=== PATIENT | female | born 1990 | race Caucasian/White ===

== ENCOUNTER 2022-10-20 15:51 | Outpatient (OUT) | payer OTHER, SELFPAY ==
--- NOTE | 2022-10-20 14:39 | US_ITS ---
[address] [address] Patient Name: PHIL MUNOZ MRN: [id number] date: 1990 Sex: F Assigned Patient Location: US Current Patient Location: Accession/Order Number: [id number] Exam Date: 10/20/2022 14:40 Report Date: 10/20/2022 16:16 At the request of: GASTON PAT Procedure: US OB growth EXAMINATION: US OB growth HISTORY: LGA COMPARISON: Ultrasound transvaginal 05/19/2022 FINDINGS: Heart Rate: 134.0 bpm Number: 1.0 Position: CEPHALIC Amniotic Fluid Volume: 16.2 cm Maximum Vertical Pocket: 5.6 cm BIOMETRY: BPD: 8.0 cm cm; 32 weeks 0 days; >97% HC: 29.3 cmcm; 32 weeks 2 days; >97% AC: 28.1 cm cm; 32 weeks 1 days; >97% FL: 6.4 cm cm; 32 weeks 6 days; >97% EFW: 1956.2 grams; >97% FL/AC: 22.6 FL/BPD: 79.6 HC/AC: 1.0 GESTATIONAL AGE: Age by EDC: 28 weeks 5 days GRANT by EDC: 01/07/2023 Age by US: 32 weeks 2 days GRANT by US: 12/13/2022 IMPRESSION: 1. Single live intrauterine . 2. Estimated weight is greater than 97th percentile. Electronically authenticated by: JOSUÉ FINLEY Date: 10/20/2022 16:16
== END 2022-10-20 15:52 ==
LOC: US 15:51
PROVIDERS: PCP Family Medicine; Visit Provider Obstetrics & Gynecology
DX: O36.63X0 Maternal care for excessive fetal growth, third trimester, not applicable or unspecified (principal); Z3A.00 Weeks of gestation of pregnancy not specified
CPT/HCPCS: 76816

== ENCOUNTER 2022-11-16 15:58 | Outpatient (OUT) | payer OTHER, SELFPAY ==
--- NOTE | 2022-11-16 16:10 | US_ITS ---
[address] [address] Patient Name: PHIL MUNOZ MRN: [id number] date: 1990 Sex: F Assigned Patient Location: [facility] Current Patient Location: Accession/Order Number: [id number] Exam Date: 11/16/2022 16:11 Report Date: 11/17/2022 04:13 At the request of: GASTON PAT Procedure: US OB BPP w non-stress EXAMINATION: US OB BPP w non-stress HISTORY: LARGE GESTATION AGE COMPARISON: Ultrasound OB growth 10/20/2022 TECHNIQUE: Ultrasound biophysical profile was performed in the radiology department. BREATHING MOVEMENTS: 2.0 GROSS BODY MOVEMENTS: 2.0 TONE: 2.0 QUALITATIVE AMNIOTIC FLUID VOLUME: 2.0 PRESENTATION: CEPHALIC HEART RATE: 148.4 bpm bpm. AMNIOTIC FLUID VOLUME: 14.1 cm GESTATIONAL AGE: 32 weeks 4 days CONCLUSION: Total biophysical profile score 8.0. Electronically authenticated by: JOSUÉ FINLEY Date: 11/17/2022 04:13
[2022-11-16 16:38] VITALS: BP 127/67; PULSE 85
--- NOTE | 2022-11-16 16:57 | US_ITS ---
[address] [address] Patient Name: PHIL MUNOZ MRN: [id number] date: 1990 Sex: F Assigned Patient Location: [facility] Current Patient Location: US Accession/Order Number: [id number] Exam Date: 11/16/2022 16:58 Report Date: 11/17/2022 04:16 At the request of: GASTON PAT Procedure: US OB growth EXAMINATION: US OB growth HISTORY: LGA ; large for gestational age COMPARISON: Ultrasound OB growth 10/20/2022 FINDINGS: Heart Rate: 145.2 bpm Number: 1.0 Position: CEPHALIC Amniotic Fluid Volume: 16.4 cm Maximum Vertical Pocket: 6.4 cm BIOMETRY: BPD: 8.9 cm cm; 36 weeks 0 days; >97% HC: 32.0 cmcm; 36 weeks 0 days; 92% AC: 30.8 cm cm; 34 weeks 6 days; 96% FL: 6.6 cm cm; 33 weeks 6 days; 71% EFW: 2509.7 grams; 95% FL/AC: 21.3 FL/BPD: 73.7 HC/AC: 1.0 GESTATIONAL AGE: Age by EDC: 32 weeks 4 days GRANT by EDC: 01/07/2023 Age by US: 35 weeks 1 day GRANT by US: 12/20/2022 IMPRESSION: 1. Single live intrauterine . 2. Estimated weight is at 95th percentile. Electronically authenticated by: JOSUÉ FINLEY Date: 11/17/2022 04:16
== END 2022-11-16 17:17 ==
LOC: US 15:58 → FBC 15:59
PROVIDERS: PCP Family Medicine; Visit Provider Obstetrics & Gynecology
DX: O36.63X0 Maternal care for excessive fetal growth, third trimester, not applicable or unspecified (principal); Z3A.00 Weeks of gestation of pregnancy not specified
CPT/HCPCS: 59025; 76816; 76818

== ENCOUNTER 2022-11-19 15:20 | Outpatient (OUT) | payer OTHER, SELFPAY | END 2022-11-19 15:44 | disposition home or self-care (01) | LOC: FBC 11-26 14:11 → FBCO 11-26 14:11 | PROVIDERS: PCP Family Medicine; Visit Provider Obstetrics & Gynecology | DX: O26.849 Uterine size-date discrepancy, unspecified trimester (principal) | CPT/HCPCS: 59025 ==

== ENCOUNTER 2022-11-23 15:16 | Outpatient (OUT) | payer OTHER, SELFPAY ==
--- NOTE | 2022-11-23 15:00 | US_ITS ---
[address] [address] Patient Name: PHIL MUNOZ MRN: [id number] date: 1990 Sex: F Assigned Patient Location: Current Patient Location: [facility] Accession/Order Number: [id number] Exam Date: 11/23/2022 15:00 Report Date: 11/23/2022 16:23 At the request of: GASTON PAT Procedure: US OB BPP w non-stress EXAMINATION: US OB BPP w non-stress HISTORY: EXCESSIVE GROWTH AFFECTING O36.63X0 COMPARISON: Ultrasound biophysical 11/16/2022 TECHNIQUE: Ultrasound biophysical profile was performed in the radiology department. BREATHING MOVEMENTS: 2.0 GROSS BODY MOVEMENTS: 2.0 TONE: 2.0 QUALITATIVE AMNIOTIC FLUID VOLUME: 2.0 PRESENTATION: BREECH HEART RATE: 137.8 bpm bpm. AMNIOTIC FLUID VOLUME: 15.3 cm GESTATIONAL AGE: 38 weeks 0 days CONCLUSION: Total biophysical profile score 8.0. Electronically authenticated by: JOSUÉ FINLEY Date: 11/23/2022 16:23
[2022-11-23 15:26] VITALS: BP 117/64; PULSE 82
== END 2022-11-23 16:33 | disposition home or self-care (01) ==
LOC: US 15:16 → FBC 15:17
PROVIDERS: PCP Family Medicine; Visit Provider Obstetrics & Gynecology
DX: O36.63X0 Maternal care for excessive fetal growth, third trimester, not applicable or unspecified (principal); Z3A.38 38 weeks gestation of pregnancy
CPT/HCPCS: 59025; 76818

== ENCOUNTER 2022-11-26 14:15 | Outpatient (OUT) | payer OTHER, SELFPAY ==
[2022-11-26 15:31] VITALS: BP 131/71; PULSE 88
== END 2022-11-26 15:50 ==
LOC: FBCO 15:21 → FBC 15:23
PROVIDERS: PCP Family Medicine; Visit Provider Obstetrics & Gynecology
DX: O26.849 Uterine size-date discrepancy, unspecified trimester (principal)
CPT/HCPCS: 59025

== ENCOUNTER 2022-11-30 15:04 | Outpatient (OUT) | payer OTHER, SELFPAY ==
--- NOTE | 2022-11-30 15:05 | US_ITS ---
[address] [address] Patient Name: PHIL MUNOZ MRN: [id number] date: 1990 Sex: F Assigned Patient Location: [facility] Current Patient Location: Accession/Order Number: [id number] Exam Date: 11/30/2022 15:10 Report Date: 11/30/2022 20:00 At the request of: GASTON PAT Procedure: US OB BPP w non-stress EXAMINATION: US OB BPP w non-stress HISTORY: EXCESSIVE GROWTH AFFECTING MANAGEMENT OF PREG COMPARISON: No relevant comparison available. TECHNIQUE: Ultrasound biophysical profile was performed in the radiology department. FINDINGS: BREATHING MOVEMENTS: 2.0 GROSS BODY MOVEMENTS: 2.0 TONE: 2.0 QUALITATIVE AMNIOTIC FLUID VOLUME: 2.0 PRESENTATION: BREECH HEART RATE: 123.9 bpm H.B./min AMNIOTIC FLUID VOLUME: 18.7 cm cm GESTATIONAL AGE: 34 weeks 4 days CONCLUSION: Total biophysical profile score: 8.0 Electronically authenticated by: TANIA RENEE Date: 11/30/2022 20:00
[2022-11-30 15:39] VITALS: BP 136/71; PULSE 93
== END 2022-11-30 16:20 | disposition home or self-care (01) ==
LOC: US 15:04 → FBC 15:06
PROVIDERS: PCP Family Medicine; Visit Provider Obstetrics & Gynecology
DX: O36.63X0 Maternal care for excessive fetal growth, third trimester, not applicable or unspecified (principal); Z3A.34 34 weeks gestation of pregnancy
CPT/HCPCS: 76818

== ENCOUNTER 2022-12-03 15:03 | Outpatient (OUT) | payer OTHER, SELFPAY ==
[2022-12-03 15:08] VITALS: BP 131/75; PULSE 101
== END 2022-12-03 15:30 | disposition home or self-care (01) ==
LOC: FBCO 15:03 → FBC 15:04
PROVIDERS: PCP Family Medicine; Visit Provider Obstetrics & Gynecology
DX: O36.63X0 Maternal care for excessive fetal growth, third trimester, not applicable or unspecified (principal); Z3A.35 35 weeks gestation of pregnancy
CPT/HCPCS: 59025

== ENCOUNTER 2022-12-07 14:55 | Outpatient (RCR) | payer OTHER, SELFPAY ==
--- NOTE | 2022-12-07 14:58 | US_ITS ---
[address] [address] Patient Name: PHIL MUNOZ MRN: [id number] date: 1990 Sex: F Assigned Patient Location: [facility] Current Patient Location: [facility] Accession/Order Number: [id number] Exam Date: 12/07/2022 15:00 Report Date: 12/07/2022 15:37 At the request of: GASTON PAT Procedure: US OB BPP w non-stress EXAMINATION: US OB BPP w non-stress HISTORY: O36.60X0 LARGE GESTATIONAL AGE COMPARISON: Ultrasound biophysical profile 11/30/2022 TECHNIQUE: Ultrasound biophysical profile was performed in the radiology department. BREATHING MOVEMENTS: 2.0 GROSS BODY MOVEMENTS: 2.0 TONE: 2.0 QUALITATIVE AMNIOTIC FLUID VOLUME: 2.0 PRESENTATION: BREECH HEART RATE: 133.7 bpm bpm. AMNIOTIC FLUID VOLUME: 14.0 cm GESTATIONAL AGE: 35 weeks 4 days CONCLUSION: Total biophysical profile score 8.0. Electronically authenticated by: JOSUÉ FINLEY Date: 12/07/2022 15:37
[2022-12-07 15:24] VITALS: BP 141/81; PULSE 83
[2022-12-07 15:49] VITALS: BP 146/79; PULSE 92
--- NOTE | 2022-12-07 16:23 | PC.NURSE ---
lab into room, obtains ccua and bloodwork
[2022-12-07 16:32] LABS: Basophils Percent Auto 0.2 % (0.2-2.0); Bilirubin Urine NEGATIVE (NEGATIVE); Blood Urine NEGATIVE (NEGATIVE); Clarity Urine CLEAR (CLEAR); Color Urine YELLOW (YELLOW); Eosinophils Absolute Auto 0.1 10^3/uL (0.0-0.7); Eosinophils Percent Auto 0.9 % (0.9-7.0); Glucose Urine UA NEGATIVE (NEGATIVE); Hematocrit 29.4 % (36.0-48.0); Hemoglobin 9.2 g/dL (12.0-16.0); Immature Granulocytes Abs Auto 0.04 10^3/uL (0.00-0.03); Immature Granulocytes Pct Auto 0.5 % (0.0-0.5); Ketones Urine NEGATIVE (NEGATIVE); Leukocyte Esterase Urine SMALL (NEGATIVE); Lymphocytes Absolute Auto 1.2 10^3/uL (1.2-3.8); Lymphocytes Percent Auto 13.9 % (20.5-60.0); Mean Corpuscular HGB Conc 31.3 g/dL (29.9-35.2); Mean Corpuscular Hemoglobin 22.9 pg (26.7-34.0); Mean Corpuscular Volume 73.3 fL (81.0-99.0); Mean Platelet Volume 10.6 fL (9.5-13.5); Monocytes Absolute Auto 0.8 10^3/uL (0.3-0.8); Neutrophils Absolute Auto 6.7 10^3/uL (1.4-6.5); Neutrophils Percent Auto 75.5 % (43.0-75.0); Nitrite Urine NEGATIVE (NEGATIVE); Platelet Count 244 10^3/uL (150-450); Protein Urine 30 mg/dL (NEG/TRACE); Red Blood Count 4.01 10^6/uL (4.20-5.40); Red Cell Distribution Width 15.2 % (11.0-15.0); Specific Gravity Urine >=1.030 (1.005-1.025); White Blood Count 8.8 10^3/uL (4.0-11.0)
[2022-12-07 16:35] LABS: Urine Microscopic Indicated YES
[2022-12-07 16:45] LABS: Partial Thromboplastin Time 23.9 sec (22.3-36.2); Prothrombin Time 9.7 sec (9.0-11.6)
[2022-12-07 16:47] LABS: Bacteria Urine SMALL #/HPF (NONE SEEN); Cast Seen? NONE SEEN #/LPF (NONE SEEN); Crystals Seen? None Seen #/HPF (None Seen); Mucus Urine TRACE (NONE SEEN); RBC Urine 0-2 #/HPF (0-2); Squamous Epithelial Cell Urine MODERATE #/LPF (NONE/RARE); Urine Culture Indicated YES
[2022-12-07 16:48] LABS: Alanine Aminotransferase 13 U/L (14-59); Albumin Globulin Ratio 0.5; Albumin Level 2.4 g/dL (3.4-5.0); Alkaline Phosphatase 168 U/L (46-116); Anion Gap 12.9; Aspartate Amino Transferase 13 U/L (15-37); Bilirubin Total 0.4 mg/dL (0.2-1.0); Calcium 8.7 mg/dL (8.5-10.1); Carbon Dioxide 24.8 mmol/L (21.0-32.0); Chloride 102 mmol/L (98-107); Estimated GFR (African America >60 (>=60); Estimated GFR (Non-African Ame >60 (>=60); Globulin 4.9 g/dL; Glucose 89 mg/dL (74-106); Lactate Dehydrogenase 170 U/L (81-234); Potassium 3.7 mmol/L (3.5-5.1); Sodium 136 mmol/L (136-145); Total Protein 7.3 g/dL (6.4-8.2); Uric Acid 3.5 mg/dL (2.6-6.0)
[2022-12-07 16:50] LABS: INR <0.93
[2022-12-07 16:54] VITALS: BP 140/95; PULSE 100
[2022-12-07 17:20] VITALS: BP 152/77; PULSE 100
--- NOTE | 2022-12-07 17:44 | PC.NURSE ---
telephone call to Dr Mcmanus and orders received for celestone, off work and 24 hour urine, follow up in office tomorrow- discussed same with pt
[2022-12-08 16:50] VITALS: BP 136/71; PULSE 80; RESP 18; TEMP 36.6
[2022-12-08 17:54] LABS: Total Protein Urine Random 54.7 mg/dL (<=11.9)
[2022-12-08 18:03] LABS: Total Protein 24 Hour Urine 492.3 mg/24hr (<=149.1); Total Volume 24 Hour Urine 900 mL/24hr
== END 2022-12-08 17:10 | disposition home or self-care (01) ==
LOC: US 14:55
PROVIDERS: PCP Family Medicine; Visit Provider Obstetrics & Gynecology
DX: O36.63X0 Maternal care for excessive fetal growth, third trimester, not applicable or unspecified (principal); Z3A.35 35 weeks gestation of pregnancy
CPT/HCPCS: 36415; 76818; 80053; 81003; 81015; 83615; 84156; 84550; 85025; 85610; 85730; 87086; 96372; J0702

== ENCOUNTER 2022-12-08 20:56 | Outpatient (REF) | payer OTHER, SELFPAY | END 2022-12-08 20:57 | disposition home or self-care (01) | LOC: LAB 20:56 | PROVIDERS: PCP Family Medicine; Visit Provider Obstetrics & Gynecology | DX: Z34.93 Encounter for supervision of normal pregnancy, unspecified, third trimester (principal) | CPT/HCPCS: 36415; 87081 ==

== ENCOUNTER 2022-12-10 05:33 | Inpatient (IN) | payer OTHER, SELFPAY ==
[2022-12-10] VITALS (31 sets, daily range): BP systolic 100–135; BP diastolic 56–74; PULSE 60–80; RESP 11–17; TEMP 36.5–36.8; O2SAT 97–99
[2022-12-10] MEDS: 0.9 % SODIUM CHLORIDE 1,000 ML 1000 ML IV ×2 (06:04→06:47)
[2022-12-10 06:15] LABS: Bilirubin Urine NEGATIVE (NEGATIVE); Blood Urine NEGATIVE (NEGATIVE); Clarity Urine CLEAR (CLEAR); Color Urine LT. YELLOW (YELLOW); Glucose Urine UA NEGATIVE (NEGATIVE); Ketones Urine NEGATIVE (NEGATIVE); Leukocyte Esterase Urine MODERATE (NEGATIVE); Nitrite Urine NEGATIVE (NEGATIVE); Protein Urine 30 mg/dL (NEG/TRACE); pH Urine 6.5 (5.0-9.0)
[2022-12-10 06:15] LABS: Basophils Percent Auto 0.2 % (0.2-2.0); Eosinophils Percent Auto 0.2 % (0.9-7.0); Hematocrit 28.1 % (36.0-48.0); Hemoglobin 8.6 g/dL (12.0-16.0); Immature Granulocytes Abs Auto 0.16 10^3/uL (0.00-0.03); Immature Granulocytes Pct Auto 1.6 % (0.0-0.5); Lymphocytes Absolute Auto 1.3 10^3/uL (1.2-3.8); Lymphocytes Percent Auto 12.6 % (20.5-60.0); Mean Corpuscular HGB Conc 30.6 g/dL (29.9-35.2); Mean Corpuscular Hemoglobin 22.3 pg (26.7-34.0); Mean Corpuscular Volume 72.8 fL (81.0-99.0); Mean Platelet Volume 10.6 fL (9.5-13.5); Monocytes Percent Auto 9.4 % (1.7-12.0); Neutrophils Absolute Auto 7.8 10^3/uL (1.4-6.5); Platelet Count 234 10^3/uL (150-450); Red Blood Count 3.86 10^6/uL (4.20-5.40); Red Cell Distribution Width 15.3 % (11.0-15.0); White Blood Count 10.2 10^3/uL (4.0-11.0)
[2022-12-10 06:21] LABS: Bacteria Urine TRACE #/HPF (NONE SEEN); Mucus Urine NONE SEEN (NONE SEEN); RBC Urine 0-2 #/HPF (0-2); Squamous Epithelial Cell Urine MODERATE #/LPF (NONE/RARE)
[2022-12-10 06:22] LABS: Cast Seen? NONE SEEN #/LPF (NONE SEEN); Crystals Seen? None Seen #/HPF (None Seen); Urine Culture Indicated YES
[2022-12-10 06:25] LABS: Amphetamine Screen Urine NEGATIVE (NEGATIVE); Barbiturates Screen Urine NEGATIVE (NEGATIVE); Benzodiazepines Screen Urine NEGATIVE (NEGATIVE); Buprenorphine Screen Urine NEGATIVE (NEGATIVE); Cannabinoid Screen Urine NEGATIVE (NEGATIVE); Cocaine Screen Urine NEGATIVE (NEGATIVE); Methadone Screen Urine NEGATIVE (NEGATIVE); Methamphetamines Screen Urine NEGATIVE (NEGATIVE); Opiate Screen Urine NEGATIVE (NEGATIVE); Oxycodone Screen Urine NEGATIVE (NEGATIVE); Phencyclidine Screen Urine NEGATIVE (NEGATIVE); Tricyclic Antidepressant Urine NEGATIVE (NEGATIVE)
--- NOTE | 2022-12-10 07:12 | W.PC.ACHO ---
Registration Status: ADM IN Primary Language: Honduran Preferred Language: Honduran Active Medications 0710- Report given to Alex Victoria RN Generic Name Dose Route Start Last Admin Trade Name Freq PRN Reason Stop Dose Admin Oxytocin 20 unit/ Sodium 1,002 mls @ 125 mls/hr 12/10/22 05:45 Chloride IV 12/10/22 13:44 Q8H WYATT Protocol Sodium Chloride 1,000 mls @ 1,000 mls/hr 12/10/22 05:45 12/10/22 06:47 Sodium Chloride 0.9% 1,000 Ml IV 12/10/22 07:44 1,000 mls/hr .Q1H WYATT Administration Sodium Chloride 1,000 mls @ 125 mls/hr 12/10/22 05:45 Sodium Chloride 0.9% 1,000 Ml IV .Q8H WYATT Diet Category Date Time Status Regular Consistency Diet Diet 12/10/22 Breakfast Active IV Insertion/Site Date of IV Line Insertion [20g 12/10/22 left Antecubital] IV Insertion Time [20g left 06:00 Antecubital] Neurology Patient orientation (short person,place,time,situation list) [place] coma scale total score 15 Respiratory Lung sounds [Bilateral clear Throughout] Pulse Oximetry 99 Oxygen Delivery Method Room Air Oxygen Delivery Method Room Air Cardiology Heart Sounds Strong,Regular Bowels Bowel Pattern No Bowel Movement Catheter Urinary Catheter Date of 12/10/22 Insertion [Urethral] Urinary Catheter Time of 06:11 Insertion [Urethral]
[2022-12-10] MEDS: ONDANSETRON PF 4 MG/2 ML VIAL IV ×2 (07:13→07:24)
[2022-12-10] MEDS: FAMOTIDINE/PF 20 MG/2 ML VIAL IV ×2 (07:13→07:23)
[2022-12-10] MEDS: CEFAZOLIN SODIUM/DEXTROSE 2 GM/50 ML PIGGYBACK IV (07:31)
[2022-12-10] MEDS: CITRIC ACID/SODIUM CITRATE 30 ML SOLUTION ORACIT SHOHL'S SOLN PO (07:31)
[2022-12-10] MEDS: 0.9 % SODIUM CHLORIDE 1,000 ML 125 ML IV (08:32)
--- NOTE | 2022-12-10 08:58 | PM.ONB ---
Brief Operative Note Date of procedure: 12/10/22 Pre-op diagnosis: iup at 36wks, preeclampsia, c/s times 4, significant pelvic pain Post-op diagnosis: same Procedure: NAME OF PROCEDURE: [ section with bilateral salpingectomy ] PROCEDURE: Patient was taken back to the Operating Room where she was given a spinal anesthesia with Duramorph without difficulty. She was prepped and draped in the normal sterile fashion. A Pfannenstiel skin incision was then made 2?cm above the symphysis pubis and carried down to underlying rectus fascia using a Bovie. The fascia was incised in the midline and extended laterally using Underwood scissors. Two Joy clamps were placed on the superior aspect of the fascia and dissected off the underlying rectus muscles. The same was performed on the inferior aspect as well. The muscles were then in the midline. Peritoneum was identified and entered bluntly. The peritoneum was then extended superiorly and inferiorly with good visualization of the bladder. The bladder blade was inserted. Vesicouterine peritoneum was identified, tented up, and entered with Metzenbaum scissors. A bladder flap was then created digitally. The bladder blade was reinserted. A low transverse incision was made on the patient's uterus and extended laterally digitally. The infant was then delivered atraumatically after the bladder blade was removed in the cephalic position. The cord was clamped and cut. Cord blood was obtained. The was handed off to awaiting team. The patient's placenta was spontaneously delivered. The uterus was then exteriorized. The uterus was cleared of all clots and debris. The bladder blade was reinserted. The patient's uterine incision was closed using #0 Vicryl in a running lock fashion. Excellent hemostasis was assured.? The rt tube was identified and grasped with babock, the ligasure was used to transect and ligate the tube in its entirity, this was done on the contralateral side as well. The uterus was then returned to the patient's abdomen. The patient's abdomen was copiously irrigated using warm saline. Peritoneal gutters were cleared of all clots and debris. Again excellent hemostasis was assured. The patient's fascia was closed using #0 Vicryl in a running fashion. The patient's skin was closed using 4-0 Vicryl subcuticularly. The patient tolerated the procedure well. Sponge, lap, and needle counts were correct x2. The patient was taken to the Recovery Room in stable condition. Surgeon: Ced Godinez Marketing Specialist: Mell Elkins Estimated blood loss (mL): 575 Pathology: other (placenta and tubes) Condition: stable Disposition: floor
--- NOTE | 2022-12-10 09:00 | P.OBPRC_ITS ---
Procedure Pre-op/Post-op diagnoses: Pre-Op/Post-Op Diagnoses Operation Date: 12/10/22 07:30 <No data on this case meets the specified criteria> Procedure: Procedures Operation Date: 12/10/22 07:30 Actual Procedure Side Surgeon p Repeat with bilateral salpingectomy Not Applicable Ced Godinez DO Senior Business Process Analyst: Ced Godinez Estimated blood loss (mL): 575 Disposition: PACU Anesthesia type: Spinal
[2022-12-10] MEDS: KETOROLAC TROMETHAMINE 30 MG/ML VIAL IVP ×3 (09:54→22:10)
--- NOTE | 2022-12-10 09:55 | PC.NURSE ---
DRESSING CLEAN DRY AND INTACD ABDOMINAL ARE EA. MYRANDA PAD SCANT AMONT OF BLOOD
--- NOTE | 2022-12-10 10:42 | PC.NURSE ---
able to move bilat legs
[2022-12-10] MEDS: DIPHENHYDRAMINE HCL 50 MG/ML (1ML) VIAL 25 MG IV (11:59)
[2022-12-10] MEDS: CEFAZOLIN SODIUM/DEXTROSE,ISO 2 GM/50 ML PIGGYBACK IV (12:10)
--- NOTE | 2022-12-10 19:09 | W.PC.ACHO ---
Registration Status: ADM IN Primary Language: Barbadian Preferred Language: Barbadian 1904 care relinquished hola meza Active Medications Generic Name Dose Route Start Last Admin Trade Name Freq PRN Reason Stop Dose Admin Al Hydroxide/Mg Hydroxide 2,400 mg 12/10/22 08:55 Magnesium Hydroxide 2,400 Mg/10 Ml Oral.Susp PO Q6H PRN Dyspepsia Diphenhydramine HCl 25 mg 12/10/22 08:55 12/10/22 11:59 Diphenhydramine Hcl 50 Mg/Ml (1ml) Vial IV 12/11/22 08:57 25 mg Q6H PRN Administration Itching Docusate Sodium 100 mg 12/11/22 09:00 Docusate Sodium 100 Mg Capsule PO BID WYATT Sodium Chloride 1,000 mls @ 125 mls/hr 12/10/22 05:45 12/10/22 08:32 Sodium Chloride 0.9% 1,000 Ml IV 125 mls/hr .Q8H WYATT Administration Sodium Chloride 1,000 mls @ 125 mls/hr 12/10/22 09:00 Sodium Chloride 0.9% 1,000 Ml IV .Q8H WYATT Ibuprofen 800 mg 12/10/22 08:55 Ibuprofen 400 Mg Tablet PO Q8H PRN Pain Ketorolac Tromethamine 30 mg 12/10/22 08:55 12/10/22 16:17 Ketorolac Tromethamine 30 Mg/Ml Vial IVP 12/12/22 08:56 30 mg Q6H PRN Administration Pain Nalbuphine HCl 10 mg 12/10/22 08:55 Nalbuphine Hcl 10 Mg/Ml Ampule IV 12/11/22 08:57 Q3H PRN Itching Ondansetron HCl 4 mg 12/10/22 08:55 Ondansetron Pf 4 Mg/2 Ml Vial IV Q6H PRN Nausea And Vomiting Ondansetron HCl 4 mg 12/10/22 08:55 Ondansetron 4 Mg Rapdis Tablet PO Q6H PRN Nausea And Vomiting Oxycodone/Acetaminophen 1 each 12/10/22 08:55 Oxycodone Hcl/Acetaminophen 5-325 Mg Tablet PO Q4H PRN Pain Oxycodone/Acetaminophen 2 each 12/10/22 08:55 Oxycodone Hcl/Acetaminophen 5-325 Mg Tablet PO Q4H PRN Pain Senna 17.2 mg 12/10/22 20:00 Sennosides 8.6 Mg Tablet PO QHS PRN Constipation Simethicone 80 mg 12/10/22 08:55 Simethicone 80 Mg Tab.Chew PO QID PRN Abdominal Distention Diet Category Date Time Status Regular Consistency Diet Diet 12/10/22 Dinner Active IV Insertion/Site Date of IV Line Insertion [20g 12/10/22 left Antecubital] IV Insertion Time [20g left 06:00 Antecubital] Neurology Patient orientation (short person,place,time,situation list) Jennifer coma scale total score 15 Respiratory Lung sounds [Bilateral clear Throughout] Lung sounds [Bilateral clear Throughout] Lung sounds [Bilateral clear Throughout] Lung sounds [Bilateral clear Throughout] Lung sounds [Bilateral clear Throughout] Lung sounds [Bilateral clear Throughout] Lung sounds [Bilateral clear Throughout] Lung sounds [Bilateral clear Throughout] Lung sounds [Bilateral clear Throughout] Pulse Oximetry 98 Pulse Oximetry 99 Pulse Oximetry 99 Pulse Oximetry 99 Pulse Oximetry 99 Pulse Oximetry 99 Pulse Oximetry 97 Pulse Oximetry 98 Pulse Oximetry 98 Pulse Oximetry 99 Pulse Oximetry 99 Pulse Oximetry 99 Pulse Oximetry 99 Oxygen Delivery Method Room Air Oxygen Delivery Method Room Air Oxygen Delivery Method Room Air Oxygen Delivery Method Room Air Oxygen Delivery Method Room Air Oxygen Delivery Method Room Air Oxygen Delivery Method Room Air Oxygen Delivery Method Room Air Oxygen Delivery Method Room Air Oxygen Delivery Method Room Air Cardiology Heart Sounds Strong,Regular Heart Sounds Strong,Regular Heart Sounds Strong,Regular Heart Sounds Strong,Regular Heart Sounds Strong,Regular Heart Sounds Strong,Regular Bowels Bowel Pattern No Bowel Movement Bowel Pattern No Bowel Movement Bowel Pattern No Bowel Movement Bowel Pattern No Bowel Movement Bowel Pattern No Bowel Movement Catheter Urinary Catheter Date of 12/10/22 Insertion [Urethral] Urinary Catheter Time of 06:11 Insertion [Urethral]
[2022-12-11] VITALS (9 sets, daily range): BP systolic 91–129; BP diastolic 53–69; PULSE 80–99; RESP 16–18; TEMP 37.1–37.3; O2SAT 98
[2022-12-11] MEDS: KETOROLAC TROMETHAMINE 30 MG/ML VIAL IVP ×4 (03:51→22:32)
[2022-12-11 06:20] LABS: Basophils Percent Auto 0.1 % (0.2-2.0); Eosinophils Percent Auto 0.3 % (0.9-7.0); Hematocrit 26.7 % (36.0-48.0); Hemoglobin 8.3 g/dL (12.0-16.0); Immature Granulocytes Abs Auto 0.11 10^3/uL (0.00-0.03); Immature Granulocytes Pct Auto 0.8 % (0.0-0.5); Lymphocytes Absolute Auto 0.9 10^3/uL (1.2-3.8); Lymphocytes Percent Auto 6.7 % (20.5-60.0); Mean Corpuscular HGB Conc 31.1 g/dL (29.9-35.2); Mean Corpuscular Hemoglobin 22.5 pg (26.7-34.0); Mean Corpuscular Volume 72.4 fL (81.0-99.0); Mean Platelet Volume 10.6 fL (9.5-13.5); Monocytes Absolute Auto 1.2 10^3/uL (0.3-0.8); Monocytes Percent Auto 8.8 % (1.7-12.0); Neutrophils Absolute Auto 10.9 10^3/uL (1.4-6.5); Neutrophils Percent Auto 83.3 % (43.0-75.0); Platelet Count 243 10^3/uL (150-450); Red Blood Count 3.69 10^6/uL (4.20-5.40); Red Cell Distribution Width 15.6 % (11.0-15.0)
--- NOTE | 2022-12-11 07:19 | W.PC.ACHO ---
Registration Status: ADM IN Primary Language: Liberian Preferred Language: Liberian Active Medications 0715- Report given to Low Noguera RN Generic Name Dose Route Start Last Admin Trade Name Freq PRN Reason Stop Dose Admin Al Hydroxide/Mg Hydroxide 2,400 mg 12/10/22 08:55 Magnesium Hydroxide 2,400 Mg/10 Ml Oral.Susp PO Q6H PRN Dyspepsia Diphenhydramine HCl 25 mg 12/10/22 08:55 12/10/22 11:59 Diphenhydramine Hcl 50 Mg/Ml (1ml) Vial IV 12/11/22 08:57 25 mg Q6H PRN Administration Itching Docusate Sodium 100 mg 12/11/22 09:00 Docusate Sodium 100 Mg Capsule PO BID WYATT Sodium Chloride 1,000 mls @ 125 mls/hr 12/10/22 05:45 12/10/22 08:32 Sodium Chloride 0.9% 1,000 Ml IV 125 mls/hr .Q8H WYATT Administration Sodium Chloride 1,000 mls @ 125 mls/hr 12/10/22 09:00 Sodium Chloride 0.9% 1,000 Ml IV .Q8H WYATT Ibuprofen 800 mg 12/10/22 08:55 Ibuprofen 400 Mg Tablet PO Q8H PRN Pain Ketorolac Tromethamine 30 mg 12/10/22 08:55 12/11/22 03:51 Ketorolac Tromethamine 30 Mg/Ml Vial IVP 12/12/22 08:56 30 mg Q6H PRN Administration Pain Nalbuphine HCl 10 mg 12/10/22 08:55 Nalbuphine Hcl 10 Mg/Ml Ampule IV 12/11/22 08:57 Q3H PRN Itching Ondansetron HCl 4 mg 12/10/22 08:55 Ondansetron Pf 4 Mg/2 Ml Vial IV Q6H PRN Nausea And Vomiting Ondansetron HCl 4 mg 12/10/22 08:55 Ondansetron 4 Mg Rapdis Tablet PO Q6H PRN Nausea And Vomiting Oxycodone/Acetaminophen 1 each 12/10/22 08:55 Oxycodone Hcl/Acetaminophen 5-325 Mg Tablet PO Q4H PRN Pain Oxycodone/Acetaminophen 2 each 12/10/22 08:55 Oxycodone Hcl/Acetaminophen 5-325 Mg Tablet PO Q4H PRN Pain Senna 17.2 mg 12/10/22 20:00 Sennosides 8.6 Mg Tablet PO QHS PRN Constipation Simethicone 80 mg 12/10/22 08:55 Simethicone 80 Mg Tab.Chew PO QID PRN Abdominal Distention Diet Category Date Time Status Regular Consistency Diet Diet 12/10/22 Dinner Active Respiratory Lung sounds [Bilateral clear Throughout] Lung sounds [Bilateral clear Throughout] Lung sounds [Bilateral clear Throughout] Lung sounds [Bilateral clear Throughout] Lung sounds [Bilateral clear Throughout] Lung sounds [Bilateral clear Throughout] Lung sounds [Bilateral clear Throughout] Lung sounds [Bilateral clear Throughout] Lung sounds [Bilateral clear Throughout] Lung sounds [Bilateral clear Throughout] Lung sounds [Bilateral clear Throughout] Pulse Oximetry 98 Pulse Oximetry 98 Pulse Oximetry 99 Pulse Oximetry 99 Pulse Oximetry 99 Pulse Oximetry 99 Pulse Oximetry 99 Pulse Oximetry 97 Pulse Oximetry 98 Pulse Oximetry 98 Pulse Oximetry 99 Pulse Oximetry 99 Pulse Oximetry 99 Oxygen Delivery Method Room Air Oxygen Delivery Method Room Air Oxygen Delivery Method Room Air Oxygen Delivery Method Room Air Oxygen Delivery Method Room Air Oxygen Delivery Method Room Air Oxygen Delivery Method Room Air Oxygen Delivery Method Room Air Oxygen Delivery Method Room Air Oxygen Delivery Method Room Air Oxygen Delivery Method Room Air Oxygen Delivery Method Room Air Oxygen Delivery Method Room Air Oxygen Delivery Method Room Air Oxygen Delivery Method Room Air Cardiology Heart Sounds Strong,Regular Heart Sounds Strong,Regular Heart Sounds Strong,Regular Heart Sounds Strong,Regular Heart Sounds Strong,Regular Heart Sounds Strong,Regular Heart Sounds Strong,Regular Heart Sounds Strong,Regular Bowels Bowel Pattern No Bowel Movement Bowel Pattern No Bowel Movement Bowel Pattern No Bowel Movement Bowel Pattern No Bowel Movement Bowel Pattern No Bowel Movement Bowel Pattern No Bowel Movement Bowel Pattern No Bowel Movement Renal Bladder Pattern Continent Bladder Pattern Continent
[2022-12-11] MEDS: DOCUSATE SODIUM 100 MG CAPSULE PO ×2 (08:47→21:09)
--- NOTE | 2022-12-11 11:40 | PM.OBPN ---
OB - PN: Subj Subjective Patient comments: no complaints and pain well controlled [place] feeding status: exclusively bottle feeding Exam Constitutional Vital Signs, click to edit/add: Last Vital Signs Temp 98.9 F 12/11/22 03:30 Pulse 89 12/11/22 08:41 Resp 16 12/11/22 03:30 BP 129/69 12/11/22 08:41 Pulse Ox 98 12/11/22 11:34 O2 Del Method Room Air 12/11/22 11:34 Documenting provider has reviewed patient's vital signs: yes Common normals: no apparent distress HENMT Common normals: normocephalic and head/scalp atraumatic Eye Common normals: PERRL Pupil: accommodation reflex normal Neck & C-Spine Common normals: full ROM Respiratory Common normals: normal respiratory effort Cardio Common normals: regular rate and regular rhythm GI Common normals: Normal to inspection, nondistended, normoactive bowel sounds present Back & Pelvis Common normals: no CVA tenderness Extremity Common normals: full ROM Neuro Common normals: oriented x3 and CN's II-XII intact bilaterally Psych Common normals: mental status grossly normal Results Labs Labs: Short CBC 12/11/22 Range/Units 06:04 WBC 13.0 H (4.0-11.0) 10^3/uL Hgb 8.3 L (12.0-16.0) g/dL Hct 26.7 L (36.0-48.0) % Plt Count 243 (150-450) 10^3/uL OB - PN: A/P Assessment and Plan (1) delivery delivered: Plan FIFTH CS WITH DIFFERENT PARTNER. AMBULATING AND EATING AND ELIMINATING NORMALLY. VOICING NO COMPLAINTS. BOTTLE FEEDING. NEEDS TO WEAR SPORTS BRA TO INHIBIT MILK PRODUCTION. WILL START LOVENOX TODAY PROPHYLACTIC S/P SURGERY. HELD BY DR. PAT YESTERDAY BECAUSE OF HEMOGLOBIN. Plan - Plan: routine postop care Time Spent with Patient Time: Total time spent is greater than 50% in coordination of care (as documented) at patient's floor/unit and/or counseling patient: Total time spent with greater than 50% in coordination of care (as documented) at patient's floor/unit and/or counseling patient: less than 15 minutes
[2022-12-11] MEDS: ENOXAPARIN SODIUM 40 MG/0.4 ML SYRINGE SUBQ (19:48)
--- NOTE | 2022-12-11 20:55 | W.PC.ACHO ---
Registration Status: ADM IN Primary Language: Mauritanian Preferred Language: Mauritanian Active Medications Generic Name Dose Route Start Last Admin Trade Name Freq PRN Reason Stop Dose Admin Al Hydroxide/Mg Hydroxide 2,400 mg 12/10/22 08:55 Magnesium Hydroxide 2,400 Mg/10 Ml Oral.Susp PO Q6H PRN Dyspepsia Docusate Sodium 100 mg 12/11/22 09:00 12/11/22 08:47 Docusate Sodium 100 Mg Capsule PO 100 mg BID WYATT Administration Enoxaparin Sodium 40 mg 12/11/22 11:45 12/11/22 19:48 Enoxaparin Sodium 40 Mg/0.4 Ml Syringe SUBQ 40 mg QD WYATT Administration Sodium Chloride 1,000 mls @ 125 mls/hr 12/10/22 05:45 12/10/22 08:32 Sodium Chloride 0.9% 1,000 Ml IV 125 mls/hr .Q8H WYATT Administration Sodium Chloride 1,000 mls @ 125 mls/hr 12/10/22 09:00 Sodium Chloride 0.9% 1,000 Ml IV .Q8H WYATT Ibuprofen 800 mg 12/10/22 08:55 Ibuprofen 400 Mg Tablet PO Q8H PRN Pain Ketorolac Tromethamine 30 mg 12/10/22 08:55 12/11/22 16:26 Ketorolac Tromethamine 30 Mg/Ml Vial IVP 12/12/22 08:56 30 mg Q6H PRN Administration Pain Ondansetron HCl 4 mg 12/10/22 08:55 Ondansetron Pf 4 Mg/2 Ml Vial IV Q6H PRN Nausea And Vomiting Ondansetron HCl 4 mg 12/10/22 08:55 Ondansetron 4 Mg Rapdis Tablet PO Q6H PRN Nausea And Vomiting Oxycodone/Acetaminophen 1 each 12/10/22 08:55 Oxycodone Hcl/Acetaminophen 5-325 Mg Tablet PO Q4H PRN Pain Oxycodone/Acetaminophen 2 each 12/10/22 08:55 Oxycodone Hcl/Acetaminophen 5-325 Mg Tablet PO Q4H PRN Pain Senna 17.2 mg 12/10/22 20:00 Sennosides 8.6 Mg Tablet PO QHS PRN Constipation Simethicone 80 mg 12/10/22 08:55 Simethicone 80 Mg Tab.Chew PO QID PRN Abdominal Distention Respiratory Lung sounds [Bilateral clear Throughout] Lung sounds [Bilateral clear Throughout] Lung sounds [Bilateral clear Throughout] Pulse Oximetry 98 Pulse Oximetry 98 Oxygen Delivery Method Room Air Oxygen Delivery Method Room Air Oxygen Delivery Method Room Air Oxygen Delivery Method Room Air Oxygen Delivery Method Room Air Oxygen Delivery Method Room Air Cardiology Heart Sounds Strong,Regular Heart Sounds Strong,Regular Bowels Bowel Pattern No Bowel Movement Bowel Pattern No Bowel Movement Renal Bladder Pattern Continent Bladder Pattern Continent Bladder Pattern Continent Bladder Pattern Continent
[2022-12-12] MEDS: KETOROLAC TROMETHAMINE 30 MG/ML VIAL IVP (05:03)
[2022-12-12 05:05] VITALS: BP 118/58; PULSE 75
[2022-12-12 09:12] VITALS: BP 127/65; PULSE 81
--- NOTE | 2022-12-12 09:59 | PM.OBDS ---
DS: Providers Provider Date of admission: 12/10/22 05:33 Primary care physician: Rajinder Baldwin MD Admitting clinician: Ced Godinez Discharging clinician: Araceli Richard Anticipated date of discharge: 12/12/22 DS: Diagnosis Discharge Diagnosis (1) delivery delivered: (2) delivery delivered: Assessment and plan: REPEAT CS WITH TUBAL LIGATION. UNCOMPLICATED COURSE. PERFORMING ADL'S WITHOUT LIMITATION. CLINICALLY NORMAL EXAM. INCISION DRY AND INTACT. NO CALF TENDERNESS. VOICES NO COMPLAINTS. Plan DISCHARGE TO HOME, FOLLOW UP IN ONE WEEK FOR INCISION CHECK, SPORTS BRA ON 07/12 TO INHIBIT MILK PRODUCTION, NO STIMULATION OF BREASTS, NO SWIMMING OR BATHTUB FOR 4 WEEKS, MAY SHOWER, NO DRIVING FOR 4 WEEKS, MAY CLIMB STAIRS, BABY NEEDS TO SEE PEDS WITHIN WEEK, CALL FOR PROBLEM OR CONCERN, SCRIPTS PROVIDED FOR TYLENOL # 3 AND COLACE OB - DS: Summary Peripartum Data - Procedures: Procedures Operation Date: 12/10/22 07:30 Actual Procedure Side Surgeon p Repeat with bilateral salpingectomy Not Applicable Ced Godinez DO Peripartum Data - Vaginal Delivery Procedures: Procedures Operation Date: 12/10/22 07:30 Actual Procedure Side Surgeon p Repeat with bilateral salpingectomy Not Applicable Ced Godinez DO Complications complications: none Delivery method: section (REPEAT WITH TUBAL LIGATION) Discharge plan: home Status at Discharge Cognitive/behavioral status at discharge: NORMAL Functional status at discharge: independent ambulation Overall status at discharge: patient is back to baseline Time Spent with Patient Time attestation: Total time spent providing and/or coordinating discharge services: Time spent: less than 30 minutes Specific discharge activities: STATED ABOVE Exam Narrative Exam Narrative: NORMAL CLINICAL EXAM Constitutional Vital Signs, click to edit/add: Last Vital Signs Temp 99.1 F 12/11/22 23:46 Pulse 81 12/12/22 09:12 Resp 16 12/11/22 23:46 BP 127/65 12/12/22 09:12 Pulse Ox 98 12/11/22 20:25 O2 Del Method Room Air 12/11/22 20:25 Discharge Plan Discharge Disposition: Home, Self-Care Condition: Good Assessment: PERFORMING ADL'S WITHOUT LIMITATION. EATING, AMBULATING AND VOIDING NORMALLY. BONDING WELL WITH NEW BABY. HAS GOOD SUPPORTS AT HOME. Plan of Treatment: NO SEX FOR SIX WEEKS, NO SWIMMING OR BATHTUB FOR 4 WEEKS, NO DRIVING FOR 4 WEEKS, INCISION CHECK IN ONE WEEK, WALKING ONLY FORM OF EXERCISE 6 WEEKS, SPORTS BRA ON 07/12 TO INHIBIT MILK PRODUCTION, GENERAL RSV AND COVID PRECAUTIONS GIVEN, SCRIPTS PROVIDED: TYLENOL # 3 ONE PO [id number] PRN PROVIDED 15 TABS, COLACE 100 MG PO BID PROVIDED 60 TABS Discharge Medications: No Action No Known Home Medications Forms: Portal Instructions
[2022-12-12] MEDS: IBUPROFEN 400 MG TABLET 800 MG PO (10:30)
== END 2022-12-12 11:00 | disposition home or self-care (01) | DRG 785 ==
PROVIDERS: Admitting Provider Obstetrics & Gynecology; PCP Family Medicine; Visit Provider Obstetrics & Gynecology
PROC: 10D00Z1 Extraction of Products of Conception, Low, Open Approach (ICD-10-PCS; CPT 59514; principal; 2022-12-10 07:30)
DX: O34.211 Maternal care for low transverse scar from previous cesarean delivery (principal); Z3A.36 36 weeks gestation of pregnancy; Z37.0 Single live birth; O99.334 Smoking (tobacco) complicating childbirth; F17.290 Nicotine dependence, other tobacco product, uncomplicated; O99.892 Other specified diseases and conditions complicating childbirth; H52.00 Hypermetropia, unspecified eye; H52.209 Unspecified astigmatism, unspecified eye; Z79.899 Other long term (current) drug therapy; Z82.49 Family history of ischemic heart disease and other diseases of the circulatory system
CPT/HCPCS: 36415; 51702; 80307; 81001; 85025; 86850; 86900; 86901; 86920; 87086; 88302; 88307; 94667; 94668; 94761; 96372; 96374; 96375; 96376

== ENCOUNTER 2025-01-23 14:49 | Outpatient (OUT) | payer OTHER, SELFPAY ==
[2025-01-23 15:11] LABS: Hematocrit 32.9 % (36.0-48.0); Hemoglobin 10.5 g/dL (12.0-16.0); Immature Granulocytes Abs Auto 0.01 10^3/uL (0.00-0.03); Immature Granulocytes Pct Auto 0.2 % (0.0-0.5); Lymphocytes Absolute Auto 1.8 10^3/uL (1.2-3.8); Mean Corpuscular HGB Conc 31.9 g/dL (29.9-35.2); Mean Corpuscular Hemoglobin 24.2 pg (26.7-34.0); Mean Corpuscular Volume 75.8 fL (81.0-99.0); Platelet Count 280 10^3/uL (150-450); Red Blood Count 4.34 10^6/uL (4.20-5.40); White Blood Count 6.3 10^3/uL (4.0-11.0)
[2025-01-23 15:23] LABS: INR 1.04; Partial Thromboplastin Time 26.7 sec (22.3-36.2); Prothrombin Time 11.0 sec (9.0-11.6)
[2025-01-23 15:42] LABS: Alanine Aminotransferase 43 U/L (14-59); Albumin Globulin Ratio 1.0; Albumin Level 4.2 g/dL (3.4-5.0); Alkaline Phosphatase 102 U/L (46-116); Anion Gap 15.9; Aspartate Amino Transferase 22 U/L (15-37); Blood Urea Nitrogen 17.0 mg/dL (7.0-18.0); Calcium 8.9 mg/dL (8.5-10.1); Carbon Dioxide 25.7 mmol/L (21.0-32.0); Chloride 101 mmol/L (98-107); Cholesterol 196 mg/dL (<=200); Estimated GFR (African America >60 (>=60 mL/min/1.73m^2); Estimated GFR (Non-African Ame >60 (>=60 mL/min/1.73m^2); Free T3 2.20 pg/mL (2.18-3.98); Globulin 4.0 g/dL; Glucose 80 mg/dL (74-106); HDL Cholesterol 59 mg/dL (40-60); NT Pro B Type Natriuretic Pept 23.0 pg/mL (<=450.0); Potassium 3.6 mmol/L (3.5-5.1); Sodium 139 mmol/L (136-145); Thyroid Stimulating Hormone 1.869 uIU/mL (0.358-3.740); Total Protein 8.2 g/dL (6.4-8.2); Triglycerides 45 mg/dL (<=150); VLDL CHOLESTEROL 9.0 mg/dL
[2025-01-23 15:51] LABS: Iron 56.0 ug/dL (50.0-170.0)
== END 2025-01-23 14:50 | disposition home or self-care (01) ==
LOC: LAB 14:51
PROVIDERS: PCP Family Medicine; Visit Provider Family Medicine
DX: R55 Syncope and collapse (principal); R00.2 Palpitations; R23.8 Other skin changes; R73.09 Other abnormal glucose; D64.9 Anemia, unspecified; R53.83 Other fatigue; I11.0 Hypertensive heart disease with heart failure; I50.30 Unspecified diastolic (congestive) heart failure
CPT/HCPCS: 36415; 80053; 80061; 83036; 83525; 83540; 83880; 84436; 84443; 84481; 85025; 85610; 85730